=== PATIENT | female | born 1935 | race Caucasian/White ===

== ENCOUNTER 2019-04-28 13:23 | Outpatient (CLI) | payer MEDICARE ==
--- NOTE | 2019-04-28 13:39 | RAD ---
EXAM: Two views chest PROVIDED CLINICAL HISTORY: Dyspnea COMPARISON: None FINDINGS: Cardiac silhouette and pulmonary vasculature are within normal limits. Biapical pleural and parenchy mal scarring is present. However, there is slightly greater nodular appearance of the right pleural and parenchymal scarring compared to the left. Linear areas of scarring are again seen in the upper l deanna zones bilaterally. There is a small nodular density overlying the lateral right upper lung zone which may represent a small calcified granuloma, but this difficult to further delineate. No consolid ation or pleural fluid is appreciated. Osteopenia is present. Vascular calcifications are seen in the thoracic aorta. IMPRESSION: 1. Findings likely related to asymmetric biapical pleural and parenchymal scarring greater on the rig ht. However, given the more nodular appearance of the pleural and parenchymal scarring in the right lung apex, direct comparison with prior chest x-rays if available is recommended. If no prior chest x -rays are available, CT scan is recommended. 2. Mild chronic lung changes. 3. Nodular density projecting over the lateral right upper lung zone probably due to calcified granul esther, but this could also be reevaluated on comparison chest x-ray or CT scan. 4. Osteopenia.
== END 2019-04-28 13:24 | disposition home or self-care (01) ==
LOC: RAD 13:23
PROVIDERS: ATTEND Internal Medicine Critical Care Medicine
DX: R06.00 Dyspnea, unspecified (principal); J98.4 Other disorders of lung; M85.80 Other specified disorders of bone density and structure, unspecified site
CPT/HCPCS: 71046

== ENCOUNTER 2020-02-28 09:05 | Outpatient (CLI) | payer MEDICARE ==
--- NOTE | 2020-02-28 09:43 | RAD ---
Two view chest: HISTORY: Dyspnea. COMPARISON: 04/28/2019. FINDINGS: Mild cardiomegaly is stable. Vascular markings upper normal. Diffuse interstitial thickening bilate rally is again noted. The interstitial thickening appears more prominent today when compared to the prior study. This could potentially represent some mild interstitial congestion and interstitial anndo ma. Blunting of the CP angles is stable and may represent tiny effusions. Calcified nodule in the periph eral right upper lobe is stable. Apical pleural thickening and apical pleural nodularity appears sta ble. IMPRESSION: The vascular interstitial markings are more prominent than on the prior exam and findings may represe nt mild interstitial congestion. Other chronic findings appear stable. POS: OFF
== END 2020-02-28 09:06 | disposition home or self-care (01) ==
LOC: BICRAD 09:05
PROVIDERS: ATTEND Internal Medicine Critical Care Medicine
DX: R06.00 Dyspnea, unspecified (principal)
CPT/HCPCS: 71046

== ENCOUNTER 2022-12-25 10:24 | Day surgery (SDC) | payer MEDICARE ==
[2022-12-24 12:03] VITALS: BMI 16.0
[2022-12-25] MEDS ORDERED: PROPOFOL 200 MG/20 ML VIAL ONE (12:23)
[2022-12-25] MEDS ORDERED: Lidocaine 1% PF 5 ML VIAL ONE (12:23)
== END 2022-12-25 14:16 | disposition home or self-care (01) ==
LOC: SDC 10:24
PROVIDERS: ATTEND Internal Medicine Gastroenterology
PROC: 0D758ZZ Dilation of Esophagus, Via Natural or Artificial Opening Endoscopic (ICD-10-PCS; principal; 2022-12-25)
PROC: 0DB38ZX Excision of Lower Esophagus, Via Natural or Artificial Opening Endoscopic, Diagnostic (ICD-10-PCS; 2022-12-25)
DX: K21.00 Gastro-esophageal reflux disease with esophagitis, without bleeding (principal); R93.3 Abnormal findings on diagnostic imaging of other parts of digestive tract; K90.41 Non-celiac gluten sensitivity; J38.01 Paralysis of vocal cords and larynx, unilateral; Z79.899 Other long term (current) drug therapy
CPT/HCPCS: 88305; 88312; 88313; J2704

== ENCOUNTER 2023-03-19 14:49 | Outpatient (CLI) | payer MEDICARE | END 2023-03-19 14:50 | disposition home or self-care (01) | LOC: ULT 14:49 | PROVIDERS: ATTEND Internal Medicine | DX: R60.0 Localized edema (principal); I37.1 Nonrheumatic pulmonary valve insufficiency; I34.0 Nonrheumatic mitral (valve) insufficiency | CPT/HCPCS: 93306 ==